=== PATIENT | female | born 1965 | race Two or more races ===

== ENCOUNTER 2024-11-04 08:03 | Day surgery (SDC) | payer OTHER ==
[~2024-11-04] VITALS: Ht 160 cm; Wt 83.9 kg
[~2024-11-04 08:03] MED LIST: ACET-1304 PO
[2024-11-04] MEDS ORDERED: fentaNYL CITRATE 100 MCG/2 ML VL ONE (09:30)
[2024-11-04] MEDS ORDERED: PROPOFOL 10 MG/ML 20 ML IV ONE (09:30)
--- NOTE | 2024-11-04 10:02 | DVHHP2 ---
GI H&P Pre-Op Assessment Date: 11/04/24 Chief complaint: colon cancer screening HPI: per clinic note Past medical history: per clinic note Past surgical history: per clinic note Family history: per clinic note Physical exam: General: NAD, AAOX3 HEENT: PERRL, no scleral icterus, normal hearing, gums without lesions or bleeding, oropharynx clear without erythema or exudate. Neck: Supple without enlargement of the thyroid, or lymphadenopathy. Chest: Normal size and shape, no tenderness, lung wheat clear to auscultation and percussion, nonlabored breathing. Heart: RRR, no murmur Abdomen: non-distended, no tenderness to palpation, +BS, no hepatosplenomegaly Extremities: no edema Neurological: CN II-XII intact, sensation intact in all extremities, 5+ strength in all extremities Skin: No rashes, No jaundice Assessment: - colon cancer screening Plan: - Colonoscopy - Risks (bleeding, infection, perforation, reaction to sedation medications and cardiopulmonary arrest) and benefit of the procedure were explained to patient. Patient agrees to undergo the procedure. CHILO JORDAN MD Nov 04, 2024 10:02
[2024-11-04 10:03] VITALS: PULSE 82; RESP 15; TEMP 98.3; O2SAT 96
--- NOTE | 2024-11-04 10:03 | DVHOP2 ---
Operative Report DATE OF OPERATION: 11/04/24 PROCEDURE: Colonoscopy. PREOPERATIVE INDICATION: The patient is a 59 -year-old female undergoing colonoscopy for colon cancer screening. POSTOPERATIVE DIAGNOSES: 1. Few diverticulosis in left colon. PROCEDURE PERFORMED BY: Heladio Umaña M.D. SCOPE: Olympus videocolonoscope. ASA CLASS: 3 PREOPERATIVE MEDICATIONS: MAC with Dr Farnsworth PROCEDURE IN DETAIL: After obtaining an informed consent, the patient was placed on left lateral decubitus position. She was then sedated with the above medications. A rectal examination was performed that was normal. The colonoscope was then passed through the anus into the rectosigmoid and through the descending, transverse, and ascending colon up to the cecum with visualization of the appendiceal orifice, base of the cecum and the ileocecal valve. No mass or polyp was observed. There was a few diverticulosis in the left colon. The colonoscope was then withdrawn. The patient tolerated the procedure well without difficulty. WITHDRAWAL TIME: 7 minutes QUALITY OF THE PREP: [place] Bowel Prep score: 5 COMPLICATIONS : None SPECIMENS: None DISPOSITION: D/C to home PLAN: 1. Repeat colonoscopy in 10 years for colon cancer screening. HELADIO UMAÑA MD Nov 04, 2024 10:03
--- NOTE | 2024-11-04 10:04 | DVHDS2 ---
Physician Discharge Progress N Final Diagnosis: Diverticulosis Operations or Procedures: Operations or Procedures Colonoscopy Condition on Discharge: Good Disposition: Home Discharge Instructions: Diet: Regular Activity: No Restrictions, As Tolerated Medications: Resume with previous home medications Follow Up Care: Discharge Statement: "Patient was advised to return to the ER or call 911 if any headaches, dizziness, shortness of breath, chest pain, abdominal pain, bleeding, fevers, or worsening of medical condition. Patient was counseled about treatment plan, medications, possible side effects, patientverbalized understanding. All questions were answered to the best of my ability. This discharge took greater then 30 minutes in planning, reviewing documentation, counseling the patient, and discussing with other team members." CHILO JORDAN MD Nov 04, 2024 10:04
[2024-11-04 10:25] VITALS: BP 130/77; PULSE 80; RESP 21; O2SAT 96
== END 2024-11-04 10:45 | disposition home or self-care (01) ==
LOC: GI 08:03
PROVIDERS: ATTEND Internal Medicine Gastroenterology
DX: Z12.11 Encounter for screening for malignant neoplasm of colon (principal); K57.30 Diverticulosis of large intestine without perforation or abscess without bleeding; I10 Essential (primary) hypertension; E66.9 Obesity, unspecified; Z68.32 Body mass index [BMI] 32.0-32.9, adult; Z79.899 Other long term (current) drug therapy; Z98.890 Other specified postprocedural states
CPT/HCPCS: 45378; J2704; J3010; J7030